=== PATIENT | male | born 1950 | race Caucasian/White ===

== ENCOUNTER → 2021-02-11 | Outpatient (CLI) | payer OTHER ==
[~2021-02-11] MED LIST: AMBIEN 5 MG TABL5 M1 PO; ATROVENT HFA14 GM INH; LIPITOR 20 MG T20 M1 PO
[2021-02-11 10:32] LABS: INR 0.99; PROTIME 10.8 Seconds (10.5-12.1)
== END | disposition home or self-care (01) ==
LOC: RAD 08:30
PROVIDERS: ATTEND Specialist
DX: M54.12 Radiculopathy, cervical region (principal); Z79.899 Other long term (current) drug therapy; Z98.890 Other specified postprocedural states

== ENCOUNTER 2021-02-16 15:13 | Observation (INO) | payer OTHER ==
[~2021-02-16] VITALS: Ht 182.9 cm; Wt 93.0 kg
[2021-02-16 15:17] VITALS: BP 157/83
[2021-02-16 16:21] LABS: HEMATOCRIT 46.9 % (42.0-52.0); HEMOGLOBIN 15.5 gm/dL (14.0-18.0); MCH 30.1 pg (26.0-34.0); MCHC 33.1 g/dL (28.0-37.0); MCV 91.1 fL (80.0-100.0); RBC 5.15 mil/uL (4.50-6.00); WBC 10.7 thou/uL (4.0-11.0)
[2021-02-16] MEDS ORDERED: AMBIEN 5 MG TABL5 M1 PO (16:22)
[2021-02-16] MEDS ORDERED: ATROVENT HFA14 GM INH (16:22)
[2021-02-16] MEDS ORDERED: LIPITOR 20 MG T20 M1 PO (16:22)
[2021-02-16 16:30] LABS: CALCIUM 8.6 mg/dL (8.5-10.1); CREATININE 1.4 mg/dL (0.7-1.3); POTASSIUM 4.6 mmol/L (3.5-5.1)
[2021-02-16 16:40] LABS: ALBUMIN 3.7 g/dL (3.4-5.0); TOTAL BILIRUBIN 0.7 mg/dL (0.2-1.0); TOTAL PROTEIN 7.1 g/dL (6.4-8.2)
[2021-02-16 18:48] VITALS: BP 155/72
[2021-02-16 19:00] VITALS: BP 147/87
[2021-02-16 21:25] VITALS: BP 158/82
--- NOTE | 2021-02-16 23:07 | NUR ---
PT WAS TRANSFERRED FROM THE ED AT APPROX 2000. REPORT WAS TAKEN BY THIS NURSE FROM ED NURSE. PT WAS PLACED IN ROOM 459. WAS ORIENTED TO ROOM & CALL LIGHT. ADMISSION PACKET & EDUCATION PROVIDED/COMPLETED. CONSENT FORMS SIGNED & IN CHART. CONSULTS CALLED. ADMISSION ASSESSMENT COMPLETED. IV FLUIDS STARTED & INFUSING. MED REQ COMPLETED IN THE ED. THIS NURSE DISCUSSED & WENT OVER HOME MEDS. PT IS CURRENTLY IN ROOM RESTING COMFORTABLY. CALL LIGHT WITHIN REACH. URINAL PROVIDED. PT WAS INFORMED TO CALL FOR ASSISTANCE TO BATHROOM D/T LIGHT HEADEDNESS. PT HAS STEADY GAIT. DENIES HEADACHE AT THSIS TIME. WILL CONTINUE TO MONITOR.
--- NOTE | 2021-02-17 07:10 | EKG ---
[place] [address] [email or web address] [place] [address] ELECTROCARDIOGRAM REPORT Name: DOMENICA JEFFERSON Room #: 455-P 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 Hand: ADAMARIS : 1950 Requested By: Luis Noonan Order Number: [id number] MD: Celso Simental Measurements Intervals [place] Rate: 53 P: 29 AL: 206 QRS: -34 QRSD: 101 T: -3 QT: 444 QTc: 417 Interpretive Statements Sinus rhythm Ventricular premature complex Probable left atrial enlargement Left ventricular hypertrophy Borderline T abnormalities, inferior leads Baseline wander in lead(s) V2 No previous ECG available for comparison Electronically Signed On 02-17-2021 7:10:01 CDT by Celso Simental [email or web address] <ELECTRONICALLY SIGNED> By: Celso Simental MD, [facility] 02/17/21709 17 17 Celso Simental MD, [facility] /EPI
[2021-02-17 08:00] VITALS: BP 143/67
--- NOTE | 2021-02-17 13:15 | NUR ---
Patient talked about his concern of the treatment plan, message sent to Dr. Chavez, awaiting response.
--- NOTE | 2021-02-17 15:39 | NUR ---
Patient asked about the treatment plan again, message sent to Dr. Cortes.
--- NOTE | 2021-02-17 16:09 | NUR ---
The staff called [phone], no response; with permission from the nursing residential supervisor, hot box operator connected the staff to a doctor in ANESTHESIOLOGY, was told they had not been notified by anybody about the blood patch. blood patch would be done for the patient tomorrow if it would be appropriate.
[2021-02-17 19:11] VITALS: BP 156/83
--- NOTE | 2021-02-18 01:59 | NUR ---
Pt A/OX4,VSS. C/o a headache at shift change 09/22,wanted Tylenol explained to pt per EMAR orders his pain level he needs to take Holdrege verbalized understanding and took Holdrege with relief noted. Pt hoping to get a spinal blood patch today because he'd like to dc home today. Explained to pt that he needs to be NPO from midnight,verbalized understanding,has been NPO since midnight. IVF infusing via LAC w/o any problems voiced,encouraged to call for help as needed. Call light/personal items within reach.
[2021-02-18 07:51] VITALS: BP 132/76
--- NOTE | 2021-02-18 14:00 | NUR ---
ASSUMED PT CARE AT 7AM.PT IN BED VERY ANXIOUS ABOUT GOING FOR SURGERY TODAY. ASSESSMENT COMPLETED.VSS.PT C/O HEADACHE RATED /10.NORCO TAB GIVEN ORDER WITH PARTIAL RELIEF.AROUND 1225,PT LEFT FOR SURDERGY ACCOMPANIED BY HIS . WILL CONTINUE TO MONITOR.
[2021-02-18 15:07] VITALS: BP 151/79
[2021-02-18 15:14] VITALS: BP 151/49
[2021-02-18 15:35] VITALS: BP 157/61
[2021-02-18 15:50] VITALS: BP 151/62
[2021-02-18 18:26] VITALS: BP 151/62
== END 2021-02-18 19:00 | disposition home or self-care (01) ==
LOC: ER 15:13 → 4W 18:10 → EROBS 18:10 → 4W 19:30
PROVIDERS: Emergency Medicine; ADMIT Hospitalist; ATTEND Hospitalist
DX: R51.0 Headache with orthostatic component, not elsewhere classified (principal); R42 Dizziness and giddiness; G89.18 Other acute postprocedural pain; M54.50 Low back pain, unspecified; Z20.822 Contact with and (suspected) exposure to COVID-19; Z79.01 Long term (current) use of anticoagulants; Z79.899 Other long term (current) drug therapy
CPT/HCPCS: 10040; 62110; 62900